=== PATIENT | male | born 1985 | race Caucasian/White ===

== ENCOUNTER 2018-06-04 18:27 | Emergency (ER) | payer SELFPAY ==
[2018-06-04 18:42] VITALS: BMI 34.7
[2018-06-04 19:25] LABS: BASO % 0.4 % (0-2.0); EOS % 2.5 % (0-4.5); HEMATOCRIT 46.6 % (35.4-49); HEMOGLOBIN 15.6 GM/dL (11.7-16.9); LYMPH % 28.2 % (8-40); MCH 29.3 pg (25.7-33.7); MCHC 33.5 g/dl (32.0-35.9); MEAN CELL VOLUME 87.4 fl (80-96); MONO % 7.3 % (3.8-10.2); NEUT % 61.6 % (42.8-82.8); PLATELET COUNT 193 K/MM3 (134-434); RBC 5.34 M/mm3 (4.00-5.60); WHITE BLOOD COUNT 8.7 K/mm3 (4.0-10.0)
[2018-06-04] MEDS ORDERED: SODIUM CHLORIDE 0.9% 1000 ML INFUS.BAG IV ONE (19:27)
[2018-06-04] MEDS ORDERED: ACETAMINOPHEN 1000 MG/100 ML VIAL (NON FORMULARY) IVPB ONE (19:27)
[2018-06-04] MEDS ORDERED: METOCLOPRAMIDE HCL INJECTION 10 MG/2 ML VIAL IVPB ONE (19:27)
--- NOTE | 2018-06-04 19:27 | PDOC ---
History of Present Illness - General Chief Complaint: Headache Stated Complaint: HEADACHE Time Seen by Provider: 06/04/18 19:12 History Source: Patient Exam Limitations: No Limitations - History of Present Illness Initial Comments: 06/04/18 19:25 The patient is a 33M with no PMH, does not follow with an MD's, who presents to the ER with complaints of headache. The patient states that he's had 4 months of headache, acutely worsening today. He describes 4 months of generalized, diffuse headaches, not associated with nausea, vomiting, changes in vision, but he does complain of intermittent R arm numbness. Today, his headache was located in his L frontal head, nonradiating, constant, associated with constant R arm numbness. He denies acute changes in vision but states that for the past 4 -5 days, his vision bilaterally has been more blurry. He denies any nausea, vomiting, lightheadedness, other numbness, tingling and weakness. He admits to a room-spinning sensation. He also admits to 1 episode of chest pain 2 days ago around noon when he was BBQ-ing, he states that it lasted 10 seconds, was sharp in nature, nonradiating, not associated with nausea, vomiting, SOB, or diaphoresis. Past History - Past Medical History Allergies/Adverse Reactions: Allergies Allergy/AdvReac Type Severity Reaction Status Date / Time No Known Allergies Allergy Verified 03/10/15 02:42 Home Medications: Ambulatory Orders Ibuprofen [Motrin] 800 mg PO TID #20 tablet 03/10/15 Oxycodone HCl/Acetaminophen [Percocet 10-325 mg Tablet -] 1 - 2 tab PO Q6H #30 tablet 03/10/15 COPD: No Psychiatric Problems: Yes (cocaine and marijuana) - Suicide/Smoking/Psychosocial Hx Smoking History: Never smoked Have you smoked in the past 12 months: No Information on smoking cessation initiated: No Hx Alcohol Use: No Drug/Substance Use Hx: No Review of Systems - Review of Systems Able to Perform ROS?: Yes Comments:: 06/04/18 19:31 GENERAL/CONSTITUTIONAL: No fever or chills. No weakness. HEAD, EYES, EARS, NOSE AND THROAT: Positive for blurry vision. No ear pain or discharge. No sore throat. CARDIOVASCULAR: Positive for 1 episode of resolved CP. No palpitations or lightheadedness. RESPIRATORY: No cough, wheezing, shortness of breath, or hemoptysis. GASTROINTESTINAL: No nausea, vomiting, diarrhea, constipation, or abdominal pain. GENITOURINARY: No dysuria, frequency, hematuria, or change in urination. MUSCULOSKELETAL: No joint or muscle swelling or pain. No neck or back pain. SKIN: No rash or lesions. NEUROLOGIC: Positive for headache and R arm numbness, with room spinning sensation. No tingling, focal weakness, loss of consciousness, or change in strength/sensation. Is the patient limited Estonian proficient: No *Physical Exam - Vital Signs Last Vital Signs Temp Pulse Resp BP Pulse Ox 99.1 F 84 16 185/116 H 100 06/04/18 18:30 06/04/18 18:30 06/04/18 18:30 06/04/18 18:30 06/04/18 18:30 - Physical Exam Comments: 06/04/18 19:32 GENERAL: Well developed, well nourished. Awake and alert. No acute distress. HEENT: Normocephalic, atraumatic. Hearing grossly normal. Moist mucous membranes. PERRLA, EOMI. No conjunctival pallor. Sclera are non-icteric. Oropharynx is clear. NECK: Supple. Full ROM. No JVD. CARDIOVASCULAR: Regular rate and rhythm. No murmurs, rubs, or gallops. PULMONARY: No evidence of respiratory distress. Lungs clear to auscultation bilaterally. No wheezing, rales or rhonchi. ABDOMINAL: Soft. Non-tender. Non-distended. No rebound or guarding. GENITOURINARY: No CVA tenderness bilaterally. MUSCULOSKELETAL: Normal range of motion at all joints. No bony deformities or tenderness. EXTREMITIES: No cyanosis. No clubbing. No edema. No calf tenderness or swelling. SKIN: Warm and dry. Normal capillary refill. No rashes. No jaundice. NEUROLOGICAL: Alert, awake, appropriate. Cranial nerves 2-12 intact. No deficits to light touch and temperature in face, upper extremities and lower extremities. 5/5 strength in deltoids, biceps, triceps, quadriceps, hamstrings, and gastrocnemius. Finger to nose normal bilaterally. Normal speech. Gait is normal without ataxia. PSYCHIATRIC: Cooperative. Good eye contact. Appropriate mood and affect. Moderate Sedation - Procedure Monitoring Vital Signs: Procedure Monitoring Vital Signs Temperature 99.1 F 06/04/18 18:30 Pulse Rate 84 06/04/18 18:30 Respiratory Rate 16 06/04/18 18:30 Blood Pressure 185/116 H 06/04/18 18:30 O2 Sat by Pulse Oximetry (%) 100 06/04/18 18:30 Heart Score/ECG Review #1 General ECG Interpretation: Sinus Rhythm, Normal Rate, Normal Intervals Compared to previous ECG there are: Previous ECG unavail 06/04/18 19:33 NSR vent rate 75 WA 206 QRS 80 QTc 428 JOHN of 2.5 boxes in V2, 2 boxes in v3, and <1 box in V4, likely early repolarization No reciprocal changes ED Treatment Course - LABORATORY CBC & Chemistry Diagram: 06/04/18 19:10 06/04/18 19:10 - RADIOLOGY Radiology Studies Ordered: Category Date Time Status HEAD CT WITHOUT CONTRAST [CT] Stat CT Scan 06/04/18 19:07 Ordered CHEST X-RAY PORTABLE* [RAD] Stat Radiology 06/04/18 19:07 Completed Medical Decision Making - Medical Decision Making 06/04/18 19:34 The patient is a 33M with no PMH who presents to the ER with complaints of headache. The patient states that he's had 3-4 months of headache, acutely worsening today. He went to the pharmacy and noted that his BP was elevated. He presented to [address] [place] [address] clinic and was given ASA and clonidine with no avail or resolution of symptoms. PE unremarkable. EKG concerning for JOHN, but likely early repol as patient as no symptoms. Concern for ICH. Pending labs and CTH. 06/04/18 20:52 CTH negative. Pt's repeat BP is 170/100's. Will give norvasc and reassess. Pt likely has asymptomatic HTN. Trop in indeterminate range. Will repeat trop in 3 hours after last draw. 06/04/18 21:29 177/104 last BP. Pt comfortable. 06/04/18 23:09 Troponin 0.03 x 2. Will d/c with PCP f/u. *DC/Admit/Observation/Transfer Diagnosis at time of Disposition: Headache Qualifiers: Headache type: unspecified Headache chronicity pattern: unspecified pattern Intractability: not intractable Qualified Code(s): R51 - Headache - Discharge Dispostion Disposition: HOME Condition at time of disposition: Stable Decision to Admit order: No - Referrals Referrals: [facility] [place] Internal Med at [place] [Provider Group] - Patient Instructions Printed Discharge Instructions: Essential Hypertension Additional Instructions: Please follow up with your primary care physician in 2-3 days. Please return to the ER if you have any signs or symptoms of chest pain, shortness of breath, uncontrollable fever, chills, nausea, vomiting, numbness, tingling, or weakness in any part of your body, changes in vision, or slurred speech. Please take your medications as prescribed. Please return to the ER if symptoms persist, worsen, or new symptoms arise. - Post Discharge Activity
[2018-06-04 19:37] LABS: INR 1.09 (0.83-1.09); PROTHROMBIN TIME (PATIENT) 12.9 SEC (9.7-13.0)
[2018-06-04] MEDS ORDERED: METOCLOPRAMIDE HCL INJECTION 10 MG/2 ML VIAL ONE (19:38)
[2018-06-04] MEDS ORDERED: ACETAMINOPHEN INJECTION 100 ML IVPB ONE (19:39)
[2018-06-04] MEDS ORDERED: HYDROCHLOROTHIAZIDE 25 MG TABLET (FP) PO ONE (20:27)
[2018-06-04] MEDS ORDERED: HYDROCHLOROTHIAZIDE 25 MG TABLET (FP) ONE (20:28)
[2018-06-04] MEDS ORDERED: amLODIPine BESYLATE 5 MG TABLET (FP) ONE (20:28)
[2018-06-04] MEDS ORDERED: amLODIPine BESYLATE 5 MG TABLET (FP) PO ONE (20:31)
[2018-06-04 20:33] LABS: ALBUMIN 3.9 g/dl (3.4-5.0); ALK PHOS 115 U/L (45-117); ANION GAP 9 MMOL/L (8-16); BILIRUBIN,TOTAL 0.3 mg/dL (0.2-1); BLOOD UREA NITROGEN 22 mg/dL (7-18); CALCIUM 8.5 mg/dL (8.5-10.1); CHLORIDE 106 mmol/L (98-107); CO2 25 mmol/L (21-32); GLUCOSE,RANDOM 102 mg/dL (74-106); MAGNESIUM 2.3 mg/dL (1.8-2.4); POTASSIUM 4.3 mmol/L (3.5-5.1); SGOT/AST 33 U/L (15-37); SGPT/ALT 42 U/L (13-61); SODIUM 140 mmol/L (136-145); TOT PROT 7.5 g/dl (6.4-8.2)
--- NOTE | 2018-06-04 20:40 | PDOC ---
Attending Attestation - HPI HPI: 06/04/18 20:45 The patient is a 33 year old male with no significant past medical history who resents tot the emergency department from [address] [place] [address], via EMS with a headache for about 4 months. The patient reports that he has been experiencing worsening headache in the last 2 days. He describes his headache as left sided . he denies any visual changes. The patient also reports that 2 days ago he experienced some chest pain with dizziness that resolved. The patient reports that he went to the pharmacy and checked his blood pressure which was noted to be 200. He states that he subsequently went to [address] [place] [address] by which they perform an EKG( abnormal) and gave him aspirin. The patient was sent to the ED for further evaluation of his symptoms. He denies any fever, chills, nausea, vomiting, diarrhea or urinary symptoms. He states that he smokes about a pack of cigarettes a month and, he is a housekeeper cleaning cooking at a grill. He denies any other complaints. Documentation prepared by Emmanuel Morales, acting as clinical medical assistant for Renetta Barrett MD. <Emmanuel Morales - Last Filed: 06/04/18 20:45> - Resident Resident Name: Kevyn Combs - ED Attending Attestation I have performed the following: I have examined & evaluated the patient, The case was reviewed & discussed with the resident, I agree w/resident's findings & plan, Exceptions are as noted - Physicial Exam PE: 06/05/18 00:26 Well-nourished well-developed 73-year-old male presents because he has high blood pressure and a headache. Head normocephalic/atraumatic. Eyes pupils equal, reactive to light and accommodation, extraocular muscles are intact. Neck no bruits, no JVD, lungs are clear to auscultation bilaterally Abdomen nontender. Extremities no edema, no clubbing, no cyanosis, No CVA tenderness Skin warm and dry. Neuro exam alert and oriented 3, no ataxia, no motor weakness, no focal neural deficits Psych appropriate - Medical Decision Making 06/05/18 00:27 Spoke at length with the patient and his family about the importance of following up and taking his blood pressure medicine. He never had any chest pain or shortness of breath today Today, he had 2 negative sets of troponins Headache resolved. No gross focal neural deficits. EKG showed early repolarization. CAT scan of the head was negative. Spoke to the patient about getting Norvasc and hydrochlorothiazide at the pharmacy. The family requested [facility] at [address] [place] [address] and prescriptions were sent to that pharmacy. I also encouraged them to follow up with [facility] [facility] Because of this time. He has no primary care physician In reviewing his old records. He had been here once before in 2014 and at that time his blood pressure was elevated to 166/100 <Renetta Barrett - Last Filed: 06/05/18 00:29>
[2018-06-04] MEDS ORDERED: LABETALOL HCL 100 MG TABLET (FP) PO ONE (21:58)
[2018-06-04] MEDS ORDERED: LABETALOL HCL 100 MG TABLET (FP) ONE (22:03)
[2018-06-04 22:05] VITALS: PULSE 71
[2018-06-04] MEDS ORDERED: cloNIDine HCL 0.1 MG TABLET PO ONE (23:10)
[2018-06-04 23:17] VITALS: BP 176/106; TEMP 98.2
[2018-06-04] MEDS ORDERED: cloNIDine HCL 0.1 MG TABLET ONE (23:19)
--- NOTE | 2018-06-05 00:32 | PDOC ---
*Physical Exam - Vital Signs Last Vital Signs Temp Pulse Resp BP Pulse Ox 98.2 F 71 16 176/106 H 100 06/04/18 23:00 06/04/18 23:00 06/04/18 23:00 06/04/18 23:00 06/04/18 23:00 ED Treatment Course - LABORATORY CBC & Chemistry Diagram: 06/04/18 19:10 06/04/18 19:10 - ADDITIONAL ORDERS Additional order review: Laboratory Results 06/04/18 06/04/18 06/04/18 22:10 19:10 19:10 PT with INR 12.90 INR 1.09 Sodium 140 Potassium 4.3 Chloride 106 Carbon Dioxide 25 Anion Gap 9 BUN 22 H Creatinine 1.0 Creat Clearance w eGFR > 60 Random Glucose 102 Calcium 8.5 Magnesium 2.3 Total Bilirubin 0.3 AST 33 ALT 42 Alkaline Phosphatase 115 Creatine Kinase 322 H 391 H Creatine Kinase Index 1.3 1.3 CK-MB (CK-2) 4.3 H 5.3 H Troponin I 0.03 0.03 Total Protein 7.5 Albumin 3.9 06/04/18 19:10 RBC 5.34 MCV 87.4 MCHC 33.5 RDW 14.0 MPV 10.0 Neutrophils % 61.6 Lymphocytes % 28.2 D Monocytes % 7.3 Eosinophils % 2.5 D Basophils % 0.4 - Medications Given in the ED: ED Medications Discontinued Medications Generic Name Dose Route Start Last Admin Trade Name Corneliusq PRN Reason Stop Dose Admin Acetaminophen 1,000 mg 06/04/18 19:27 06/04/18 19:45 Ofirmev Injection - IVPB 06/04/18 19:28 1,000 mg ONCE ONE Administration Amlodipine Besylate 5 mg 06/04/18 20:31 06/04/18 20:32 Norvasc - PO 06/04/18 20:32 5 mg ONCE ONE Administration Clonidine 0.2 mg 06/04/18 23:10 06/04/18 23:20 Catapres - PO 06/04/18 23:11 0.2 mg NOW ONE Administration Diphenhydramine HCl 25 mg 06/04/18 19:27 06/04/18 19:45 Benadryl Injection - IVPUSH 06/04/18 19:28 25 mg ONCE ONE Administration Hydrochlorothiazide 25 mg 06/04/18 20:27 06/04/18 20:31 Hctz - PO 06/04/18 20:28 25 mg ONCE ONE Administration Labetalol HCl 100 mg 06/04/18 21:58 06/04/18 22:05 Normodyne - PO 06/04/18 21:59 100 mg ONCE ONE Administration Metoclopramide HCl 10 mg 06/04/18 19:27 06/04/18 19:46 Reglan Injection - IVPB 06/04/18 19:28 10 mg ONCE ONE Administration Sodium Chloride 1,000 ml 06/04/18 19:27 06/04/18 19:45 Normal Saline - IV 06/04/18 19:28 1,000 ml ONCE ONE Administration *DC/Admit/Observation/Transfer Diagnosis at time of Disposition: Headache Qualifiers: Headache type: unspecified Headache chronicity pattern: unspecified pattern Intractability: not intractable Qualified Code(s): R51 - Headache - Discharge Dispostion Disposition: HOME Condition at time of disposition: Stable - Prescriptions Prescriptions: Amlodipine Besylate [Norvasc -] 10 mg PO DAILY #30 tablet MDD 1 tab Hydrochlorothiazide [Hctz -] 25 mg PO DAILY #30 tablet MDD 1 tab - Referrals Referrals: [facility] [place] Internal Med at [place] [Provider Group] - Patient Instructions Printed Discharge Instructions: Essential Hypertension Additional Instructions: Please follow up with your primary care physician in 2-3 days. You may wish to call [facility] internal medicine group at [facility] for follow-up appointment. There telephone number is [phone]. You may also follow-up at [facility] and the number is [phone] Please return to the ER if you have any signs or symptoms of chest pain, shortness of breath, uncontrollable fever, chills, nausea, vomiting, numbness, tingling, or weakness in any part of your body, changes in vision, or slurred speech. Please take your medications as prescribed. Please return to the ER if symptoms persist, worsen, or new symptoms arise. - Post Discharge Activity
--- NOTE | 2018-06-05 11:39 | EKG ---
Test Reason : Blood Pressure : / mmHG Vent. Rate : 075 BPM Atrial Rate : 075 BPM P-R Int : 206 ms QRS Dur : 080 ms QT Int : 384 ms P-R-T Axes : 030 -24 062 degrees QTc Int : 428 ms NORMAL SINUS RHYTHM INFERIOR INFARCT , AGE UNDETERMINED ANTEROSEPTAL INFARCT , POSSIBLY ACUTE ACUTE MN / STEMI ABNORMAL ECG NO PREVIOUS ECGS AVAILABLE Confirmed by CANDI CABRERA, YAZAN ([id number]) on 06/05/2018 11:38:32 AM Referred By: Confirmed By:YAZAN CHRISTOPHER MD
== END 2018-06-05 01:23 | disposition home or self-care (01) ==
LOC: JER 18:27
PROC: 3E033GC Introduction of Other Therapeutic Substance into Peripheral Vein, Percutaneous Approach (ICD-10-PCS; principal; 2018-06-04)
PROC: 3E033GC Introduction of Other Therapeutic Substance into Peripheral Vein, Percutaneous Approach (ICD-10-PCS; 2018-06-04)
PROC: 3E033NZ Introduction of Analgesics, Hypnotics, Sedatives into Peripheral Vein, Percutaneous Approach (ICD-10-PCS; 2018-06-04)
DX: R51 Headache (principal)
CPT/HCPCS: 36415; 70450-TC; 71045-TC-FY; 80053; 82550; 82553; 83735; 84484; 85025; 85610; 93005; 93010; 99285-25; J0131; J0735; J7030

== ENCOUNTER 2020-04-14 18:23 | Emergency (ER) | payer OTHER ==
[2020-04-14 18:45] VITALS: BMI 32.7
[2020-04-14] MEDS ORDERED: ACETAMINOPHEN 325 MG TABLET (FP) PO ONE (19:23)
[2020-04-14] MEDS ORDERED: METOCLOPRAMIDE HCL INJECTION 10 MG/2 ML VIAL IVPUSH ONE (19:23)
[2020-04-14] MEDS ORDERED: ACETAMINOPHEN 325 MG TABLET (FP) ONE (20:27)
[2020-04-14] MEDS ORDERED: METOCLOPRAMIDE HCL INJECTION 10 MG/2 ML VIAL ONE (20:27)
[2020-04-14 20:36] LABS: BASO % 0.7 % (0-2.0); EOS % 3.9 % (0-4.5); HEMATOCRIT 45.6 % (35.4-49); HEMOGLOBIN 14.8 GM/dL (11.7-16.9); LYMPH % 28.3 % (8-40); MCH 28.9 pg (25.7-33.7); MCHC 32.5 g/dl (32.0-35.9); MEAN CELL VOLUME 89.1 fl (80-96); MEAN PLT VOLUME 9.4 fl (7.5-11.1); MONO % 7.9 % (3.8-10.2); NEUT % 59.2 % (42.8-82.8); PLATELET COUNT 224 K/MM3 (134-434); RBC 5.12 M/mm3 (4.00-5.60); RDW 13.7 % (11.9-15.9); WHITE BLOOD COUNT 9.7 K/mm3 (4.0-10.0)
[2020-04-14 20:53] LABS: CHLORIDE 106 mmol/L (98-107); POTASSIUM 4.2 mmol/L (3.5-5.1); SODIUM 138 mmol/L (136-145)
[2020-04-14 20:55] LABS: CALCIUM 9.2 mg/dL (8.5-10.1)
[2020-04-14 20:56] LABS: ANION GAP 7 MMOL/L (8-16); BLOOD UREA NITROGEN 23.7 mg/dL (7-18); CO2 25 mmol/L (21-32); GLUCOSE,RANDOM 88 mg/dL (74-106); MAGNESIUM 2.5 mg/dL (1.8-2.4)
[2020-04-14 20:59] LABS: CREATININE 1.2 mg/dL (0.55-1.3); SGOT/AST 27 U/L (15-37); SGPT/ALT 33 U/L (13-61)
[2020-04-14 21:00] LABS: BILIRUBIN,TOTAL 0.3 mg/dL (0.2-1)
[2020-04-14 21:01] LABS: TOT PROT 7.5 g/dl (6.4-8.2)
[2020-04-14 21:02] LABS: ALK PHOS 104 U/L (45-117)
[2020-04-14 23:10] LABS: PH,URINE 7.5 (5.0-8.0); URINE APPEARANCE CLOUDY; URINE BILIRUBIN NEGATIVE (NEGATIVE); URINE COLOR YELLOW; URINE GLUCOSE (UA) NEGATIVE (NEGATIVE); URINE KETONE NEGATIVE (NEGATIVE); URINE LEUK ESTERASE NEGATIVE (NEGATIVE); URINE NITRITE NEGATIVE (NEGATIVE); URINE PROTEIN NEGATIVE (NEGATIVE); URINE UROBILINOGEN 0.2 mg/dL (0.2-1.0)
[2020-04-14 23:47] VITALS: BP 152/90; PULSE 68
== END 2020-04-14 23:45 | disposition home or self-care (01) ==
LOC: JER 18:23
PROC: 3E033NZ Introduction of Analgesics, Hypnotics, Sedatives into Peripheral Vein, Percutaneous Approach (ICD-10-PCS; principal; 2020-04-14)
DX: R51.9 Headache, unspecified (principal); R00.2 Palpitations
CPT/HCPCS: 36415; 70450-TC; 71045-TC-FY; 80053; 81003; 82550; 82553; 83735; 84443; 84484; 85025; 85730; 93005; 93010; 99285-25

== ENCOUNTER 2020-11-30 21:34 | Emergency (ER) | payer OTHER ==
[2020-11-30 21:48] VITALS: TEMP 98; BMI 32.9
[2020-11-30] MEDS ORDERED: ASPIRIN 81 MG CHEWABLE TABLETS PO ONE (23:24)
[2020-11-30] MEDS ORDERED: ASPIRIN 81 MG CHEWABLE TABLETS ONE ×2 (23:33→23:40)
[2020-11-30 23:42] LABS: BASO % 0.6 % (0-2.0); HEMATOCRIT 45.7 % (35.4-49); HEMOGLOBIN 15.4 GM/dL (11.7-16.9); LYMPH % 17.4 % (8-40); MCHC 33.7 g/dl (32.0-35.9); MEAN PLT VOLUME 8.9 fl (7.5-11.1); MONO % 8.4 % (3.8-10.2); NEUT % 70.6 % (42.8-82.8); PLATELET COUNT 233 10^3/uL (134-434); RBC 5.31 M/mm3 (4.00-5.60); RDW 13.3 % (11.9-15.9); WHITE BLOOD COUNT 10.8 K/mm3 (4.0-10.0)
[2020-11-30 23:59] LABS: CHLORIDE 108 mmol/L (98-107); SODIUM 139 mmol/L (136-145)
[2020-12-01] LABS: CALCIUM 9.1 mg/dL (8.5-10.1)
[2020-12-01 00:01] LABS: ALBUMIN 4.2 g/dl (3.4-5.0); ANION GAP 6 MMOL/L (8-16); BLOOD UREA NITROGEN 20.3 mg/dL (7-18); CO2 26 mmol/L (21-32); GLUCOSE,RANDOM 103 mg/dL (74-106)
[2020-12-01 00:04] LABS: CREATININE 1.3 mg/dL (0.55-1.3); SGOT/AST 38 U/L (15-37); SGPT/ALT 79 U/L (13-61)
[2020-12-01 00:06] LABS: BILIRUBIN,TOTAL 0.2 mg/dL (0.2-1); TOT PROT 8.4 g/dl (6.4-8.2)
[2020-12-01 00:07] LABS: ALK PHOS 130 U/L (45-117)
[2020-12-01 05:30] VITALS: BP 140/89; PULSE 64
== END 2020-12-01 05:33 | disposition home or self-care (01) ==
LOC: JER 21:34
DX: R06.02 Shortness of breath (principal); R07.9 Chest pain, unspecified
CPT/HCPCS: 36415; 71046-TC-FY; 80053; 84443; 84484; 85025; 93005; 93010; 99285-25

== ENCOUNTER 2022-07-22 15:00 | Inpatient (IN) | payer OTHER ==
[2022-07-22] MEDS ORDERED: amLODIPine BESYLATE 10 MG TABLET (FP) PO ONE (15:41)
[2022-07-22] MEDS ORDERED: hydrALAZINE HCL 20 MG/ML VIAL IVPUSH ONE (16:31)
[2022-07-22 16:54] LABS: BASO % 0.6 % (0-2.0); HEMATOCRIT 44.3 % (35.4-49); HEMOGLOBIN 14.7 GM/dL (11.7-16.9); LYMPH % 21.9 % (8-40); MCH 28.3 pg (25.7-33.7); MCHC 33.2 g/dl (32.0-35.9); MEAN CELL VOLUME 85.1 fl (80-96); MEAN PLT VOLUME 9.1 fl (7.5-11.1); NEUT % 66.5 % (42.8-82.8); PLATELET COUNT 229 10^3/uL (134-434); RDW 13.7 % (11.9-15.9); WHITE BLOOD COUNT 8.3 K/mm3 (4.0-10.0)
[2022-07-22 17:01] LABS: INR 1.18 (0.83-1.09); PROTHROMBIN TIME (PATIENT) 13.7 SEC (9.7-13.0)
[2022-07-22 17:04] LABS: ACTIVATED PTT 37.3 SECONDS (25.2-36.5)
[2022-07-22] MEDS ORDERED: amLODIPine BESYLATE 10 MG TABLET (FP) ONE (17:13)
[2022-07-22] MEDS ORDERED: hydrALAZINE HCL 20 MG/ML VIAL ONE (17:13)
[2022-07-22 17:18] LABS: ALBUMIN 3.8 g/dl (3.4-5.0); BLOOD UREA NITROGEN 21.8 mg/dL (7-18); CALCIUM 8.7 mg/dL (8.5-10.1); MAGNESIUM 2.6 mg/dL (1.8-2.4)
[2022-07-22 17:21] LABS: CREATININE 0.9 mg/dL (0.55-1.3)
[2022-07-22 17:24] LABS: BILIRUBIN,TOTAL 0.2 mg/dL (0.2-1); TOT PROT 7.6 g/dl (6.4-8.2)
[2022-07-22 17:27] LABS: N-TERMINAL BNP 43.9 pg/ml (5-125)
[2022-07-23 08:23] LABS: CALCIUM 9.3 mg/dL (8.5-10.1)
[2022-07-23 08:24] LABS: ALBUMIN 3.8 g/dl (3.4-5.0); BASO % 0.4 % (0-2.0); EOS % 2.9 % (0-4.5); HEMATOCRIT 45.8 % (35.4-49); HEMOGLOBIN 15.7 GM/dL (11.7-16.9); LYMPH % 24.3 % (8-40); MCH 28.9 pg (25.7-33.7); MCHC 34.3 g/dl (32.0-35.9); MEAN CELL VOLUME 84.1 fl (80-96); MEAN PLT VOLUME 9.7 fl (7.5-11.1); MONO % 8.4 % (3.8-10.2); PLATELET COUNT 238 10^3/uL (134-434); RBC 5.45 M/mm3 (4.00-5.60); RDW 13.7 % (11.9-15.9)
[2022-07-23 08:27] LABS: CREATININE 0.9 mg/dL (0.55-1.3)
[2022-07-23 08:28] LABS: BILIRUBIN,TOTAL 0.7 mg/dL (0.2-1); TOT PROT 7.6 g/dl (6.4-8.2)
[2022-07-23] MEDS ORDERED: HYDROCHLOROTHIAZIDE 25 MG TABLET (FP) ONE (10:40)
[2022-07-23] MEDS ORDERED: amLODIPine BESYLATE 10 MG TABLET (FP) ONE (10:40)
[2022-07-23] MEDS: HYDROCHLOROTHIAZIDE 25 MG TABLET (FP) PO SCH (10:49)
[2022-07-23] MEDS: amLODIPine BESYLATE 10 MG TABLET (FP) PO SCH (10:49)
[2022-07-23] MEDS: hydrALAZINE HCL 10 MG TABLET PO SCH ×2 (15:00→21:46)
[2022-07-23] MEDS ORDERED: hydrALAZINE HCL 10 MG TABLET ONE (15:54)
[2022-07-23 23:22] VITALS: BMI 33.5
[2022-07-24] MEDS: hydrALAZINE HCL 10 MG TABLET PO SCH ×3 (05:09→22:16)
[2022-07-24 07:29] LABS: ALBUMIN 3.9 g/dl (3.4-5.0); BLOOD UREA NITROGEN 22.5 mg/dL (7-18); CALCIUM 9.2 mg/dL (8.5-10.1)
[2022-07-24 07:30] LABS: CREATININE 1.2 mg/dL (0.55-1.3)
[2022-07-24 07:32] LABS: BILIRUBIN,TOTAL 0.8 mg/dL (0.2-1); TOT PROT 8.2 g/dl (6.4-8.2)
[2022-07-24 07:34] LABS: BASO % 0.4 % (0-2.0); EOS % 2.7 % (0-4.5); HEMATOCRIT 48.5 % (35.4-49); HEMOGLOBIN 16.3 GM/dL (11.7-16.9); LYMPH % 27.6 % (8-40); MCH 28.4 pg (25.7-33.7); MCHC 33.6 g/dl (32.0-35.9); MEAN CELL VOLUME 84.4 fl (80-96); MEAN PLT VOLUME 9.4 fl (7.5-11.1); MONO % 8.8 % (3.8-10.2); NEUT % 60.5 % (42.8-82.8); PLATELET COUNT 271 10^3/uL (134-434); RBC 5.74 M/mm3 (4.00-5.60); RDW 13.9 % (11.9-15.9); WHITE BLOOD COUNT 8.7 K/mm3 (4.0-10.0)
[2022-07-24] MEDS: HYDROCHLOROTHIAZIDE 25 MG TABLET (FP) PO SCH (09:24)
[2022-07-24] MEDS: amLODIPine BESYLATE 10 MG TABLET (FP) PO SCH (09:24)
[2022-07-24] MEDS ORDERED: LOSARTAN POTASSIUM 50 MG TABLET PO SCH (10:00)
[2022-07-24 11:07] LABS: COCAINE, UR NEGATIVE (NEGATIVE); PHENCYCLIDINE,URINE NEGATIVE (NEGATIVE); URINE AMPHETAMINES NEGATIVE (NEGATIVE)
[2022-07-24 11:08] LABS: OPIATES, URI NEGATIVE (NEGATIVE); URINE BARBITURATES NEGATIVE (NEGATIVE)
[2022-07-24 11:12] LABS: METHADONE, UR NEGATIVE (NEGATIVE); URINE BENZODIAZEPINES NEGATIVE (NEGATIVE)
[2022-07-24] MEDS: NIFEdipine E.R 60 MG TABLET PO SCH ×2 (11:58→22:16)
[2022-07-24] MEDS: LOSARTAN POTASSIUM 50 MG TABLET PO SCH (22:16)
[2022-07-25] MEDS: hydrALAZINE HCL 10 MG TABLET PO SCH ×2 (05:37→13:53)
[2022-07-25] MEDS: LOSARTAN POTASSIUM 50 MG TABLET PO SCH (09:59)
[2022-07-25] MEDS: NIFEdipine E.R 60 MG TABLET PO SCH (09:59)
[2022-07-25] MEDS: HYDROCHLOROTHIAZIDE 25 MG TABLET (FP) PO SCH (09:59)
[2022-07-25 12:22] LABS: BASO % 0.5 % (0-2.0); EOS % 2.1 % (0-4.5); HEMATOCRIT 49.9 % (35.4-49); LYMPH % 21.9 % (8-40); MCH 28.5 pg (25.7-33.7); MCHC 34.1 g/dl (32.0-35.9); MEAN CELL VOLUME 83.7 fl (80-96); MEAN PLT VOLUME 9.4 fl (7.5-11.1); MONO % 8.5 % (3.8-10.2); PLATELET COUNT 288 10^3/uL (134-434); RBC 5.96 M/mm3 (4.00-5.60); RDW 13.6 % (11.9-15.9); WHITE BLOOD COUNT 9.5 K/mm3 (4.0-10.0)
[2022-07-25 12:28] VITALS: RESP 20
[2022-07-25 12:36] LABS: INR 1.18 (0.83-1.09); PROTHROMBIN TIME (PATIENT) 13.7 SEC (9.7-13.0)
[2022-07-25 12:50] LABS: BLOOD UREA NITROGEN 27.7 mg/dL (7-18)
[2022-07-25 12:52] LABS: ALBUMIN 4.1 g/dl (3.4-5.0); CALCIUM 9.6 mg/dL (8.5-10.1)
[2022-07-25 12:53] LABS: CREATININE 1.2 mg/dL (0.55-1.3); TOT PROT 8.4 g/dl (6.4-8.2)
[2022-07-25 12:56] LABS: BILIRUBIN,TOTAL 0.6 mg/dL (0.2-1)
[2022-07-25 14:10] VITALS: BP 148/94; PULSE 89; TEMP 98.6
== END 2022-07-25 14:31 | disposition home or self-care (01) | DRG 199 ==
LOC: JER 15:00 → JERBED 19:41 → J4S 07-23 21:41 → OBSVTOIN 07-24 15:14
PROVIDERS: ADMIT Internal Medicine; ATTEND Family Medicine
DX: I16.1 Hypertensive emergency (principal); F14.90 Cocaine use, unspecified, uncomplicated; F17.210 Nicotine dependence, cigarettes, uncomplicated; R73.03 Prediabetes; R51.9 Headache, unspecified; R79.89 Other specified abnormal findings of blood chemistry; K70.9 Alcoholic liver disease, unspecified; Z91.199 Patient's noncompliance with other medical treatment and regimen due to unspecified reason
CPT/HCPCS: 0241U-QW; 36415; 70450-TC; 71045-TC-FY; 76700-TC; 80053; 80307; 82550; 82553; 82977; 83735; 83880; 84484; 85025; 85610; 85730; 86704; 86708; 86803; 87340; 87517; 93005; 93010; 93306-TC; 99285-25; G0378

== ENCOUNTER 2022-09-06 00:06 | Emergency (ER) | payer OTHER ==
[2022-09-06 00:15] VITALS: TEMP 98; BMI 32.9
[2022-09-06] MEDS ORDERED: FAMOTIDINE 20 MG/50 ML IVPB 20 MG/50 ML MG IVPB ONE ×2 (00:50→01:36)
[2022-09-06] MEDS ORDERED: MAG HYDROX/AL HYDROX/SIMETH -MYLANTA- ORAL SUSPENSION PO ONE (00:50)
[2022-09-06] MEDS ORDERED: ACETAMINOPHEN 1000 MG/100 ML BAG IVPB ONE (00:50)
[2022-09-06 01:35] LABS: BASO % 0.4 % (0-2.0); EOS % 3.3 % (0-4.5); HEMATOCRIT 40.3 % (35.4-49); HEMOGLOBIN 13.7 GM/dL (11.7-16.9); LYMPH % 22.1 % (8-40); MCH 28.2 pg (25.7-33.7); MCHC 33.9 g/dl (32.0-35.9); MEAN CELL VOLUME 83.1 fl (80-96); MEAN PLT VOLUME 9.1 fl (7.5-11.1); MONO % 7.1 % (3.8-10.2); NEUT % 67.1 % (42.8-82.8); PLATELET COUNT 244 10^3/uL (134-434); RBC 4.85 M/mm3 (4.00-5.60); RDW 13.5 % (11.9-15.9); WHITE BLOOD COUNT 10.5 K/mm3 (4.0-10.0)
[2022-09-06] MEDS ORDERED: ACETAMINOPHEN INJECTION 100 ML IVPB ONE (01:35)
[2022-09-06] MEDS ORDERED: MAG HYDROX/AL HYDROX/SIMETH 30 ML UNIT-DOSE CUP ONE (01:36)
[2022-09-06 01:56] LABS: POTASSIUM 3.5 mmol/L (3.5-5.1)
[2022-09-06 01:58] LABS: CALCIUM 9.6 mg/dL (8.5-10.1)
[2022-09-06 01:59] LABS: ALBUMIN 3.9 g/dl (3.4-5.0); BLOOD UREA NITROGEN 28.5 mg/dL (7-18)
[2022-09-06 02:02] LABS: CREATININE 1.5 mg/dL (0.55-1.3)
[2022-09-06 02:03] LABS: BILIRUBIN,TOTAL 0.4 mg/dL (0.2-1); TOT PROT 8.1 g/dl (6.4-8.2)
[2022-09-06] MEDS ORDERED: SODIUM CHLORIDE 0.9% 500 ML INFUS.BAG IV ONE (02:08)
[2022-09-06 05:15] LABS: POTASSIUM 4.2 mmol/L (3.5-5.1)
[2022-09-06 05:17] LABS: CALCIUM 8.6 mg/dL (8.5-10.1)
[2022-09-06 05:18] LABS: BLOOD UREA NITROGEN 24.9 mg/dL (7-18)
[2022-09-06 05:21] LABS: CREATININE 1.1 mg/dL (0.55-1.3)
[2022-09-06 05:40] VITALS: BP 152/98; PULSE 59; RESP 18
== END 2022-09-06 05:44 | disposition home or self-care (01) ==
LOC: JER 00:06
PROC: 3E033GC Introduction of Other Therapeutic Substance into Peripheral Vein, Percutaneous Approach (ICD-10-PCS; principal; 2022-09-06)
PROC: 3E033GC Introduction of Other Therapeutic Substance into Peripheral Vein, Percutaneous Approach (ICD-10-PCS; 2022-09-06)
DX: R07.9 Chest pain, unspecified (principal); R10.13 Epigastric pain; R00.0 Tachycardia, unspecified; R12 Heartburn
CPT/HCPCS: 36415; 71046-TC-FY; 80048; 80053; 83690; 84484; 85025; 93005; 93010; 99285-25

== ENCOUNTER 2023-07-09 09:24 | Emergency (ER) | payer OTHER ==
[2023-07-09 09:31] VITALS: BP 140/88; PULSE 73; RESP 18; TEMP 98.3; BMI 32.9
[2023-07-09] MEDS ORDERED: LIDOCAINE 4% PATCH TP ONE (10:36)
[2023-07-09] MEDS ORDERED: ACETAMINOPHEN 325 MG TABLET (FP) ONE (10:36)
[2023-07-09] MEDS ORDERED: KETOROLAC TROMETHAMINE 30 MG/1 ML VIAL ONE (10:36)
[2023-07-09] MEDS: LIDOCAINE 5% TOPICAL PATCH TP ONE (10:51)
[2023-07-09] MEDS: ACETAMINOPHEN 500 MG TABLET (FP) PO ONE (10:51)
[2023-07-09] MEDS: KETOROLAC TROMETHAMINE 30 MG/1 ML VIAL IVPUSH ONE (10:51)
[2023-07-09] MEDS ORDERED: LIDOCAINE PATCH REMOVAL MC ONE (22:00)
== END 2023-07-09 11:56 | disposition home or self-care (01) ==
LOC: JERFT 09:24
PROC: 3E0333Z Introduction of Anti-inflammatory into Peripheral Vein, Percutaneous Approach (ICD-10-PCS; principal; 2023-07-09)
DX: M54.50 Low back pain, unspecified (principal); V89.2XXA Person injured in unspecified motor-vehicle accident, traffic, initial encounter; Y92.410 Unspecified street and highway as the place of occurrence of the external cause
CPT/HCPCS: 99284-25

== ENCOUNTER 2024-12-25 12:29 | Emergency (ER) | payer OTHER ==
[2024-12-25 12:38] VITALS: BMI 30.9
[2024-12-25] MEDS ORDERED: ACETAMINOPHEN INJECTION 100 ML ONE (13:23)
[2024-12-25] MEDS: SODIUM CHLORIDE 0.9% 500 ML INFUS.BAG IV ONE (13:27)
[2024-12-25] MEDS: ACETAMINOPHEN 1000 MG/100 ML BAG IVPB ONE (13:27)
[2024-12-25 13:29] LABS: ABSOLUTE IMMATURE GRANULOCYTES 0.03 x10^3/uL (0.0-0.031); BASOPHILS # 0.05 x10^3/uL (0.01-0.08); EOSINOPHIL % 0.2 % (0.8-7.0); EOSINOPHILS # 0.03 x10^3/uL (0.04-0.54); MCHC 32.6 g/dl (32.3-36.5); MEAN CELL VOLUME 87.4 fl (79.0-92.2); MEAN PLT VOLUME 10.5 fl (9.4-12.4); MONOCYTE # 1.03 x10^3/uL (0.30-0.82); MONOCYTE % 7.8 % (5.3-12.2); RDW 13.4 % (12.1-15.9)
[2024-12-25 14:02] LABS: GLUCOSE,RANDOM 107.0 mg/dL (74-106); TOT PROT 8.1 g/dl (6.4-8.2)
[2024-12-25 14:03] LABS: CO2 23.0 mmol/L (21-32)
[2024-12-25 14:05] LABS: ALK PHOS 138.0 U/L (40-150)
[2024-12-25 14:08] LABS: CREATININE 0.91 mg/dL (0.55-1.3); SGOT/AST 76.0 U/L (5-34); SGPT/ALT 140.0 U/L (0-55)
[2024-12-25 14:22] LABS: HCV DIAGNOSTIC IN-HOUSE W/RFLX NON-REACTIVE (NONREACTIVE); HIV INTERPRETATION NEGATIVE (NEGATIVE)
[2024-12-25 17:04] VITALS: BP 152/90; PULSE 72; RESP 18; TEMP 99
== END 2024-12-25 17:00 | disposition home or self-care (01) ==
LOC: JER 12:29
PROC: 3E03329 Introduction of Other Anti-infective into Peripheral Vein, Percutaneous Approach (ICD-10-PCS; principal; 2024-12-25)
PROC: 3E033NZ Introduction of Analgesics, Hypnotics, Sedatives into Peripheral Vein, Percutaneous Approach (ICD-10-PCS; 2024-12-25)
DX: K57.32 Diverticulitis of large intestine without perforation or abscess without bleeding (principal); R19.7 Diarrhea, unspecified; R10.13 Epigastric pain; I10 Essential (primary) hypertension
CPT/HCPCS: 36415; 74177-TC; 80053; 85025; 86803; 87389; 99285-25; Q9967